=== PATIENT | male | born 1955 | race Caucasian/White ===

== ENCOUNTER 2023-01-15 06:49 | Day surgery (SDC) | payer MEDICARE ==
[2023-01-14 11:52] LABS: BASOPHILS # (AUTO) 0.1 X10'3 (0-0.2); BASOPHILS % (AUTO) 0.9 % (0-1); EOSINOPHILS # (AUTO) 0.3 X10'3 (0-0.9); EOSINOPHILS % (AUTO) 5.6 % (0-6); HEMATOCRIT 47.1 % (42.0-52.0); HEMOGLOBIN 15.7 g/dl (14.0-17.9); LYMPHOCYTES # (AUTO) 1.4 X10'3 (1.1-4.8); LYMPHOCYTES % (AUTO) 24.8 % (21-51); MEAN CORPUSCULAR HEMOGLOBIN 29.1 PG (27.0-31.0); MEAN CORPUSCULAR HGB CONC 33.4 g/dL (33.0-36.5); MEAN CORPUSCULAR VOLUME 87.2 FL (78-98); MEAN PLATELET VOLUME 7.7 FL (7.4-10.4); MONOCYTES # (AUTO) 0.8 X10'3 (0-0.9); MONOCYTES % (AUTO) 14.6 % (2-12); NEUTROPHILS # (AUTO) 3.1 X10'3 (1.8-7.7); NEUTROPHILS % (AUTO) 54.1 % (42-75); PLATELET COUNT 211 X10'3 (140-440); RED CELL DISTRIBUTION WIDTH 14.1 % (11.5-14.5); WHITE BLOOD COUNT 5.8 X10'3 (4.5-11.0)
[2023-01-14 12:07] LABS: APTT 27 SECONDS (22-32); PROTHROMBIN TIME 10.8 SECONDS (9.0-12.0)
[2023-01-14 12:14] LABS: ALANINE AMINOTRANSFERASE 30 U/L (12-78); ALBUMIN 3.7 G/DL (3.4-5.0); ALBUMIN/GLOBULIN RATIO 1.1 (1.1-1.5); ALKALINE PHOSPHATASE 71 IU/L (46-116); ANION GAP 8 (8-16); ASPARTATE AMINO TRANSFERASE 18 U/L (10-37); BILIRUBIN,TOTAL 0.3 MG/DL (0.1-1.0); BLOOD UREA NITROGEN 19 MG/DL (7-18); BUN/CREATININE RATIO 16.4 (10.0-20.0); CALCIUM 9.2 MG/DL (8.5-10.1); CHLORIDE 107 MMOL/L (99-107); CREATININE 1.16 MG/DL (0.60-1.10); GLUCOSE 104 MG/DL (70-104); POTASSIUM 4.2 MMOL/L (3.5-5.1); SODIUM 139 MMOL/L (135-145); TOTAL PROTEIN 7.2 G/DL (6.4-8.2); eGFR 63 ML/MIN
[2023-01-15] VITALS (16 sets, daily range): BP systolic 116–158; BP diastolic 68–105; PULSE 67–85; RESP 9–16; TEMP 98.3; O2SAT 87–93
[~2023-01-15] VITALS: Ht 180.3 cm; Wt 128.4 kg
[2023-01-15] MEDS ORDERED: normal saline 1,000 ML IV SCH (07:05)
[2023-01-15] MEDS ORDERED: LORazepam 0.5 MG tablet PO PRN (07:05)
[2023-01-15] MEDS ORDERED: diphenhydrAMINE 25mg capsule PO PRN (07:05)
[2023-01-15] MEDS ORDERED: midazolam 1 mg/ML 2ml injection ONE ×2 (08:20→09:20)
[2023-01-15] MEDS ORDERED: fentaNYL/PF 50MCG/1 ML 2ML syringe ONE ×2 (08:20→09:20)
[2023-01-15 08:21] LABS: PRO BRAIN NATRIURETIC PEPTIDE 48 PG/ML (0-125)
[2023-01-15] MEDS ORDERED: iohexol 350MG/ML 100ml bottle IV ONE (08:21)
[2023-01-15] MEDS ORDERED: iohexol 350 MG/ML 50ML vial IV ONE (08:21)
[2023-01-15] MEDS ORDERED: LIDOcaine 1% (10mg/ml)w/preservative inj. 20ml MDV ONE (08:21)
[2023-01-15] MEDS ORDERED: ASPI-611 PO (08:47)
[2023-01-15] MEDS ORDERED: OMEP20CA16 PO (08:47)
[2023-01-15] MEDS ORDERED: TRAZ-256 PO (08:47)
[2023-01-15] MEDS ORDERED: CHOL50004 PO (08:47)
[2023-01-15] MEDS ORDERED: AMLO5TAB16 PO (08:47)
[2023-01-15] MEDS ORDERED: CARV3.122 PO (08:47)
[2023-01-15] MEDS ORDERED: [UNRECOGNIZED DRUG - OTHER] PO (08:47)
[2023-01-15] MEDS ORDERED: BUPR-319 PO (08:47)
[2023-01-15] MEDS ORDERED: TEST75GE TOP (08:47)
[2023-01-15] MEDS ORDERED: [UNRECOGNIZED DRUG - OTHER] INH (08:47)
[2023-01-15] MEDS ORDERED: MAGN400C PO (08:47)
[2023-01-15] MEDS ORDERED: DESV100T PO (08:47)
[2023-01-15] MEDS ORDERED: FENO145T26 PO (08:47)
[2023-01-15] MEDS ORDERED: ASCO500C17 PO (08:47)
[2023-01-15] MEDS ORDERED: ROSU10TA2 PO (08:47)
[2023-01-15] MEDS ORDERED: OMEG-5 PO (08:47)
[2023-01-15] MEDS ORDERED: IBUP-1986 PO (08:47)
[2023-01-15] MEDS ORDERED: TIZA4TAB11 PO (08:47)
[2023-01-15] MEDS ORDERED: HYDROmorphone 1 mg/ml syringe ONE (09:33)
[2023-01-15] MEDS ORDERED: HYDROcodone/acetaminophen 10/325mg tab PO PRN (10:50)
[2023-01-15] MEDS ORDERED: proCHLORperazine 10 MG/2 ml inj IV PRN (10:50)
[2023-01-15] MEDS ORDERED: ondansetron/PF 4mg/2ml inj IV PRN (10:50)
[2023-01-15] MEDS ORDERED: HYDROmorphone 1 mg/ml syringe IV ONE (10:50)
[2023-01-15] MEDS ORDERED: OXAZEpam 15mg capsule PO PRN (10:50)
[2023-01-15] MEDS ORDERED: HYDROcodone/acetaminophen 5mg/325mg tablet PO PRN (10:50)
== END 2023-01-15 17:45 | disposition home or self-care (01) ==
LOC: SSTAY O 06:49
PROVIDERS: ATTEND Internal Medicine Cardiovascular Disease
DX: I25.119 Atherosclerotic heart disease of native coronary artery with unspecified angina pectoris (principal); D86.89 Sarcoidosis of other sites; I10 Essential (primary) hypertension; G89.4 Chronic pain syndrome; E78.5 Hyperlipidemia, unspecified; F32.A Depression, unspecified; Z88.0 Allergy status to penicillin; Z98.890 Other specified postprocedural states; Z79.899 Other long term (current) drug therapy; F12.90 Cannabis use, unspecified, uncomplicated; F11.20 Opioid dependence, uncomplicated
CPT/HCPCS: 36415; 71046; 80053; 83880; 84484; 85025; 85610; 85730; 93458; 99152; J1170; J1644; J2250; J3010; J3490; J7030; Q0163; Q9967; 99153; A6258; A6449; C1760

== ENCOUNTER 2023-01-28 11:28 | Outpatient (CLI) | payer MEDICARE ==
[~2023-01-28 11:28] MED LIST: AMLO5TAB16 PO; ASCO500C17 PO; ASPI-611 PO; BUPR-319 PO; CARV3.122 PO; CHOL50004 PO; DESV100T PO; FENO145T26 PO; IBUP-1986 PO; MAGN400C PO; OMEG-5 PO; OMEP20CA16 PO; ROSU10TA2 PO; TEST75GE TOP; TIZA4TAB11 PO; TRAZ-256 PO; [UNRECOGNIZED DRUG - OTHER] INH; [UNRECOGNIZED DRUG - OTHER] PO
== END 2023-01-28 23:59 | disposition home or self-care (01) ==
LOC: VAS 11:28
PROVIDERS: ATTEND Internal Medicine Cardiovascular Disease
DX: T88.9XXA Complication of surgical and medical care, unspecified, initial encounter (principal); R22.41 Localized swelling, mass and lump, right lower limb; Y83.8 Other surgical procedures as the cause of abnormal reaction of the patient, or of later complication, without mention of misadventure at the time of the procedure; Y82.8 Other medical devices associated with adverse incidents
CPT/HCPCS: 93926